=== PATIENT | female | born 1985 | race Caucasian/White ===

== ENCOUNTER 2018-11-07 08:27 | Emergency (ER) | payer OTHER ==
[2018-11-07 09:15] VITALS: BP 142/86
[2018-11-07 10:30] LABS: Influenza A Molecular NEGATIVE (Negative); Influenza B Molecular NEGATIVE (Negative)
--- NOTE | 2018-11-07 10:33 | UC ---
Throat Pain/Nasal Ben HPI - HPI Summary HPI Summary: 33-year-old woman comes in with a chief complaint of upper respiratory tract infection symptoms for 5 days. Runny nose sore throat some cough no shortness of breath. No recent fevers. No myalgias. Sore throat pain is worse with swallowing. [id number] medicines help some with the symptoms. - History of Current Complaint Chief Complaint: UCRespiratory Stated Complaint: SORE THROAT SINUS ISSUE COUGH Time Seen by Provider: 11/07/18 10:14 Hx Last Menstrual Period: one week ago Pain Intensity: 0 - Allergies/Home Medications Allergies/Adverse Reactions: Allergies Allergy/AdvReac Type Severity Reaction Status Date / Time MS Benzoyl Peroxide Allergy Rash Verified 09/30/15 12:18 [Benzoyl Peroxide] Home Medications: Home Medications Ibuprofen TAB* [Motrin TAB* 400 MG] 400 mg PO Q6H PRN 11/07/18 [History Confirmed 11/07/18] PMH/Surg Hx/FS Hx/Imm Hx Previously Healthy: Yes - Surgical History Surgical History: None Surgery Procedure, Year, and Place: pt denies - Family History Known Family History: Positive: None, Cardiac Disease, Diabetes - Social History Alcohol Use: None Substance Use Type: None Smoking Status (MU): Light Every Day Tobacco Smoker Type: Cigarettes Amount Used/How Often: 1 pack per week Length of Time of Smoking/Using Tobacco: 3.5 years Have You Smoked in the Last Year: No - Immunization History Most Recent Tetanus Shot: 01/14/13 Vaccination Up to Date: Yes Review of Systems All Other Systems Reviewed And Are Negative: Yes Constitutional: Positive: Negative Skin: Positive: Negative Eyes: Positive: Negative ENT: Positive: Sore Throat, Nasal Discharge, Sinus Congestion, Sinus Pain/ Tenderness Respiratory: Positive: Negative Cardiovascular: Positive: Negative Gastrointestinal: Positive: Negative Motor: Positive: Negative Neurovascular: Positive: Negative Musculoskeletal: Positive: Negative Neurological: Positive: Negative Psychological: Positive: Negative Is Patient Immunocompromised?: No Physical Exam Triage Information Reviewed: Yes Appearance: No Pain Distress, Well-Nourished, Ill-Appearing - mild Vital Signs: Initial Vital Signs Temp 98.8 F 11/07/18 09:11 Pulse 91 11/07/18 09:11 Resp 18 11/07/18 09:11 BP 142/86 11/07/18 09:11 Pulse Ox 100 11/07/18 09:11 Vital Signs Reviewed: Yes Eye Exam: Normal Eyes: Positive: Conjunctiva Clear ENT: Positive: Pharyngeal erythema, Nasal congestion, Nasal drainage, TMs normal Neck exam: Normal Neck: Positive: Supple Respiratory: Positive: Lungs clear, Normal breath sounds, No respiratory distress Cardiovascular: Positive: RRR Musculoskeletal Exam: Normal Musculoskeletal: Positive: Strength Intact, ROM Intact Neurological Exam: Normal Neurological: Positive: Alert, Muscle Tone Normal Psychological Exam: Normal Psychological: Positive: Age Appropriate Behavior Skin Exam: Normal Throat Pain/Nasal Course/Dx - Course Course Of Treatment: DISCUSSED VIRAL VERSES BACTERIAL INFECTION AND THE ROLE OF ANTIBIOTICS. THE PATIENT WISHES TO BE ON ANTIBIOTIC AT THIS TIME. - Differential Dx/Diagnosis Provider Diagnosis: Upper respiratory infection Discharge - Sign-Out/Discharge Documenting (check all that apply): Patient Departure All imaging exams completed and their final reports reviewed: No Studies - Discharge Plan Condition: Stable Disposition: HOME Prescriptions: Amoxicillin PO (*) [Amoxicillin 875 MG (*)] 875 mg PO BID #20 tab Patient Education Materials: Upper Respiratory Infection (ED) Referrals: Glo Myles MD [Primary Care Provider] - Additional Instructions: FOLLOW UP WITH YOUR DOCTOR IF NOT COMPLETELY IMPROVED. GET RECHECKED FOR ANY WORSENING OF YOUR CONDITION OR QUESTIONS OR CONCERNS. - Billing Disposition and Condition Condition: STABLE Disposition: Home
== END 2018-11-07 10:35 | disposition home or self-care (01) ==
LOC: UCEAST 08:27
DX: J06.9 Acute upper respiratory infection, unspecified (principal); F17.210 Nicotine dependence, cigarettes, uncomplicated; Z88.8 Allergy status to other drugs, medicaments and biological substances
CPT/HCPCS: 87651; 99201; G0463

== ENCOUNTER 2019-10-07 14:10 | Emergency (ER) | payer OTHER ==
[2019-10-07 15:51] VITALS: BP 122/79
--- NOTE | 2019-10-07 16:13 | UC ---
Throat Pain/Nasal Ben HPI - HPI Summary HPI Summary: 33-year-old female presenting with sore throat that gradually worsened over the past 3 days. Also notes nasal congestion and postnasal drainage. Notes nonproductive cough. Denies shortness breath and wheezing. Denies fevers. Notes chills 2 nights ago. Notes body aches and nausea today. Denies vomiting , diarrhea, abdominal pain. Notes mild decreased appetite but still eating. Normal fluid intake. She has been taking Tylenol and ibuprofen without much pain relief. Denies ill contacts. - History of Current Complaint Chief Complaint: UCRespiratory Stated Complaint: THROAT PAIN Hx Obtained From: Patient Hx Last Menstrual Period: 3 wks ago Onset/Duration: Gradual Onset, Lasting Days Pain Intensity: 7 Pain Scale Used: 0-10 Numeric - Allergies/Home Medications Allergies/Adverse Reactions: Allergies Allergy/AdvReac Type Severity Reaction Status Date / Time benzoyl peroxide Allergy Rash Verified 10/07/19 15:53 Home Medications: Home Medications Phentermine HCl [Lomaira] 15 mg PO DAILY 10/07/19 [History Confirmed 10/07/19] PMH/Surg Hx/FS Hx/Imm Hx - Surgical History Surgical History: None Surgery Procedure, Year, and Place: pt denies - Family History Known Family History: Positive: None, Cardiac Disease, Diabetes - Social History Alcohol Use: None Substance Use Type: None Smoking Status (MU): Former Smoker Type: Cigarettes Amount Used/How Often: 1 pack per week Length of Time of Smoking/Using Tobacco: 3.5 years Have You Smoked in the Last Year: No - Immunization History Most Recent Tetanus Shot: 01/14/13 Vaccination Up to Date: Yes Review of Systems All Other Systems Reviewed And Are Negative: Yes Constitutional: Positive: Chills ENT: Positive: Sore Throat, Sinus Congestion Respiratory: Positive: Cough - nonproductive. Negative: Shortness Of Breath Cardiovascular: Positive: Negative Gastrointestinal: Positive: Nausea. Negative: Vomiting Musculoskeletal: Positive: Myalgia Neurological: Positive: Negative Physical Exam Triage Information Reviewed: Yes Appearance: No Pain Distress, Ill-Appearing, Obese Vital Signs: Initial Vital Signs Temp 99.7 F 10/07/19 15:48 Pulse 108 10/07/19 15:48 Resp 16 10/07/19 15:48 BP 122/79 10/07/19 15:48 Pulse Ox 97 10/07/19 15:48 Lab Results 10/07/19 10/07/19 Range/Units 16:05 16:23 Influenza B (Rapid) Positive A (Negative) Group A Strep Rapid Negative (Negative) Vital Signs Reviewed: Yes Eyes: Positive: Conjunctiva Clear ENT: Positive: Hearing grossly normal, Pharyngeal erythema, Nasal congestion, Nasal drainage - PND, TMs normal, Uvula midline. Negative: Tonsillar swelling, Tonsillar exudate, Trismus, Muffled voice, Hoarse voice Neck exam: Normal Neck: Positive: Supple, Nontender, No Lymphadenopathy Respiratory Exam: Normal Respiratory: Positive: Lungs clear, Normal breath sounds, No respiratory distress, No accessory muscle use. Negative: Crackles, Rhonchi, Stridor, Wheezing Cardiovascular Exam: Other - regular rhythm Cardiovascular: Positive: Tachycardia Neurological: Positive: Alert Psychological: Positive: Age Appropriate Behavior Skin Exam: Normal Throat Pain/Nasal Course/Dx - Course Course Of Treatment: Rapid strep test negative. Rapid flu test positive for influenza B. Discussed this with patient. Patient has been ill for several days now and informed her that Tamiflu would likely not be beneficial at this point. Instructed to continue symptomatic relief and follow up with PCP if symptoms persist. Instructed to go to ED with any new or worsening symptoms. Patient voiced understanding and agreed with treatment plan. - Differential Dx/Diagnosis Differential Diagnosis/HQI/PQRI: Mononucleosis, Pharyngitis, Sinusitis, URI Provider Diagnosis: Influenza B Discharge ED - Sign-Out/Discharge Documenting (check all that apply): Patient Departure All imaging exams completed and their final reports reviewed: No Studies - Discharge Plan Condition: Stable Disposition: HOME Patient Education Materials: Influenza (ED) Referrals: Glo Myles MD [Primary Care Provider] - If Needed Additional Instructions: As discussed, you tested positive for the flu today. Your rapid strep test was negative. You may take over the counter flu medications, such as thera flu, for symptomatic relief. You may also continue with ibuprofen for pain relief. Get plenty of rest and increase your fluid intake. Follow up with your primary care provider if symptoms do not begin to resolve within 5-7 days. Go to the emergency room with any new or worsening symptoms. - Billing Disposition and Condition Condition: STABLE Disposition: Home - Attestation Statements Provider Attestation: I was available for consult. This patient was seen by the HUAN. The patient was not presented to, seen by, or examined by me. -Radha
[2019-10-07 16:26] LABS: Influenza B Molecular POSITIVE (Negative)
== END 2019-10-07 16:51 | disposition home or self-care (01) ==
LOC: UCEAST 14:10
DX: J10.1 Influenza due to other identified influenza virus with other respiratory manifestations (principal); Z88.8 Allergy status to other drugs, medicaments and biological substances; Z87.891 Personal history of nicotine dependence
CPT/HCPCS: 87651; 99211; G0463